=== PATIENT | female | born 2000 | race Caucasian/White ===

== ENCOUNTER 2022-09-04 11:50 | Emergency (ER) | payer OTHER, SELFPAY ==
[2022-09-04 12:07] VITALS: BP 123/60; PULSE 94; RESP 16; TEMP 36.6; O2SAT 98
--- NOTE | 2022-09-04 12:48 | PC.NURSE ---
Kumar nurse arrived.
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
--- NOTE | 2022-09-04 15:18 | PC.NURSE ---
Kumar nurse still in room evaluating pt.
[2022-09-04] MEDS: ONDANSETRON HCL ODT 4 MG TABLET PO (16:46)
[2022-09-04] MEDS: DOXYCYCLINE HYCLATE 100 MG TABLET PO (16:47)
[2022-09-04] MEDS: metroNIDAZOLE 250 MG TABLET 500 MG PO (16:47)
[2022-09-04] MEDS: LIDOCAINE HCL 1% LOCAL INJ 20 ML VIAL (16:48)
[2022-09-04] MEDS: cefTRIAXone 1 GM VIAL 0.5 GM IM (16:49)
[2022-09-04 17:20] VITALS: BP 110/75; PULSE 79; RESP 16; TEMP 37.3; O2SAT 100
[2022-09-04 17:22] LABS: Alanine Aminotransferase 18 U/L (6-35); Albumin Level 4.6 g/dL (3.5-5.1); Alkaline Phosphatase 63 U/L (38-126); Anion Gap 8 mmol/L (8-16); Aspartate Amino Transferase 28 U/L (14-36); Bilirubin,Total 0.4 mg/dL (0.2-1.3); Blood Urea Nitrogen 6 mg/dL (7-17); Carbon Dioxide 27 mmol/L (22-30); Chloride 104 mmol/L (98-107); Estimated CRCL calculation 107 ml/min; Estimated Glomerular Filt Rate > 60; Glucose 100 mg/dL (65-110); Potassium 3.7 mmol/L (3.4-5.0); Sodium 139 mmol/L (137-145)
[2022-09-04 18:02] LABS: HIV 1/2 Ab P24 Ag Result Negative (Negative)
[2022-09-04] MEDS: RALTEGRAVIR 400 MG TABLET PO (18:03)
[2022-09-04] MEDS: EMTRICITABINE-TENOFOVIR 100 MG-150 MG TABLET 2 TAB PO (18:03)
[2022-09-04] MEDS: levonorgestreL 1.5 MG TABLET PO (18:54)
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
== END 2022-09-04 19:00 | disposition home or self-care (01) ==
PROVIDERS: Emergency Provider General Practice
DX: T74.21XA Adult sexual abuse, confirmed, initial encounter (principal); Y07.59 Other non-family member, perpetrator of maltreatment and neglect
CPT/HCPCS: 36415; 80053; 81025; 86703; 87070; 87491; 87591; 87808; 99285; A9270; G0432; J0696